=== PATIENT | male | born 1995 | race Hispanic/Latino ===

== ENCOUNTER 2025-01-29 12:45 | Emergency (ER) | payer SELFPAY ==
[2025-01-29 12:56] VITALS: BP 141/71; PULSE 68; RESP 18; TEMP 36.8; O2SAT 99
--- NOTE | 2025-01-29 13:33 | ED_ITS ---
HPI - General Adult General Chief complaint: Unspecified Stated complaint: half of the face numb, L side jaw pain Time Seen by Provider: 01/29/25 12:56 History of Present Illness HPI narrative: 29-year-old male presented to the emergency department for evaluation for left- sided facial numbness that started yesterday it has worsened today. Patient does have some left-sided dental pain. 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 Patient denies any prior history of Jefferson's palsy. Patient denies any other focal no or weakness. Patient has no prior history of CVA. Related Data Allergies Allergy/AdvReac Type Severity Reaction Status Date / Time No Known Allergies Allergy Verified 01/29/25 13:55 Review of Systems Review of Systems: All systems reviewed & are unremarkable except as noted in HPI and below Exam Narrative: APPEARANCE: Well appearing, no pain, no distress, well-nourished. HEAD: normocephalic, atraumatic. EYES: PERRLA/EOMI, conjunctivae clear. NOSE: Normal no drainage EARS:TMS clear with good light reflex. THROAT: Pharynx clear, no exudate. NECK: Supple. No adenopathy, no masses. RESPIRATORY: Airway patent, respirations nonlabored. Clear to auscultation bilaterally, no rales, rhonchi, wheezing. CARDIOVASCULAR: Regular rate and rhythm without murmurs rubs or gallops. ABDOMINAL: Soft, nontender, nondistended, normal bowel sounds MUSCULOSKELETAL: Moves all extremities. Strength/ROM intact, No edema, No calf tenderness. NEURO: Facial droop involving left forehead and left face. Otherwise normal neurologic exam with negative Romberg, normal for backward tandem gait and no drift or weakness SKIN: Warm, dry. Normal Color PSYCHIATRIC: Normal affect/mood. Course Vital Signs Vital signs: Vital Signs Temperature 98.3 F 01/29/25 12:56 Pulse Rate 68 01/29/25 12:56 Respiratory Rate 18 01/29/25 12:56 Blood Pressure 141/71 H 01/29/25 12:56 Pulse Oximetry 99 01/29/25 12:56 Oxygen Delivery Room Air 01/29/25 12:56 Temperature 98.3 F 01/29/25 12:56 Pulse Rate 68 01/29/25 12:56 Respiratory Rate 18 01/29/25 12:56 Blood Pressure 141/71 H 01/29/25 12:56 Pulse Oximetry 99 01/29/25 12:56 Oxygen Delivery Room Air 01/29/25 12:56 Medical Decision Making MDM Narrative Medical decision making narrative: 29-year-old male present to the emergency department for evaluation for left- sided facial droop. 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 Patient was started prednisone, valacyclovir Augmentin emergency department. Patient was started Augmentin for concern for possible dental infection. Patient was provided similar medications for home and patient was also provided outpatient follow-up with Neurology. Questions concerns were addressed. Patient well-appearing at time of discharge. Differential Diagnosis Differential Diagnosis: Jefferson's palsy, TIA, CVA, neuralgia, paresthesia Vital Signs Vital Signs: Vital Signs Temperature 98.3 F 01/29/25 12:56 Pulse Rate 68 01/29/25 12:56 Respiratory Rate 18 01/29/25 12:56 Blood Pressure 141/71 H 01/29/25 12:56 Pulse Oximetry 99 01/29/25 12:56 Oxygen Delivery Room Air 01/29/25 12:56 Temperature 98.3 F 01/29/25 12:56 Pulse Rate 68 01/29/25 12:56 Respiratory Rate 18 01/29/25 12:56 Blood Pressure 141/71 H 01/29/25 12:56 Pulse Oximetry 99 01/29/25 12:56 Oxygen Delivery Room Air 01/29/25 12:56 Discharge Plan Discharge Clinical Impression: Jefferson's palsy Patient Disposition: Home Condition: Stable Instructions: Antibiotic Form, Jefferson Palsy (ED) Additional Instructions: Antibiotic as directed for possible dental infection. Prednisone as directed until completed. Antiviral as directed until completed. Have close follow-up with your primary care physician have close follow-up with Neurology. Natural tears as directed while awake and protect the eye while sleeping as directed. Patient Language: [place] Prescriptions: New prednisone 20 mg tablet 60 mg PO DAILY 7 Days Qty: 21 0RF valacyclovir 1 gram tablet 1,000 mg PO TID 7 Days Qty: 21 0RF amoxicillin-pot clavulanate 875-125 mg tablet 1 tablet PO Q12H 7 Days Qty: 14 0RF Follow-up/Referrals: Latesha Marx MD [Physician, Neurology] PHYSICIAN,TECHNICAL FELLOW [Primary Care Provider, Internal Medicine]
== END 2025-01-29 14:01 | disposition home or self-care (01) ==
PROVIDERS: Emergency Provider Emergency Medicine
DX: G51.0 Bell's palsy (principal)
CPT/HCPCS: 99283; A9270; J7512